=== PATIENT | female | born 1995 | race Two or more races ===

== ENCOUNTER 2023-08-11 10:30 | Emergency (ER) | payer MEDICARE, MEDICAID, SELFPAY ==
[2023-08-11 10:55] VITALS: BP 121/82; PULSE 68; RESP 12; TEMP 36.3; O2SAT 100
--- NOTE | 2023-08-11 11:08 | ED.GENADULT ---
HPI - General Adult General Chief complaint: Unspecified Stated complaint: rings stuck on finger right hand Time Seen by Provider: 08/11/23 11:08 Source: patient Mode of arrival: ambulatory Limitations: no limitations History of Present Illness HPI narrative: 28 yo F presents with two rings stuck on R ring finger. Pt states she always wears her rings and never removes them. Fingers swelled up this week. Her friends dad was able to remove several of the rings for her but could not get the two off her R ring finger. Finger is swollen. NV intact. All systems reviewed and negative except as noted above. Review of Systems Review of Systems: CONSTITUTIONAL: Denies fever, chills, or sweats. EYES: Denies visual changes, redness, or discharge. ENT: Denies rhinorrhea, congestion, sore throat, or otalgia. CARDIOVASCULAR: Denies chest pain, palpitations, or edema. RESPIRATORY: Denies cough or dyspnea. GASTROINTESTINAL: Denies abdominal pain, nausea, vomiting, or diarrhea. GENITOURINARY: Denies dysuria or hematuria. SKIN: Denies rash or itching. Reports two ring stuck on right ring finger. MUSCULOSKELETAL: Denies back pain, joint pain, or myalgia. NEUROLOGIC: Denies headache, numbness, or weakness. PSYCHIATRIC: Denies anxiety or depression. All other systems reviewed are negative, except as documented in HPI. PMFSH Comments At time of signature, agree with nursing past medical, surgical, social and family history. There is no relevant family history pertinent to the presenting complaint. Exam Narrative: GENERAL: This is a well-nourished, well-developed patient, in no apparent distress. HEAD: normocephalic, atraumatic. EYES: PERRL. Sclera clear/white. Vision is grossly intact. EARS: External ears normal NOSE: External nose normal NECK: Neck supple, non-tender without lymphadenopathy, masses or thyromegaly. CARDIOVASCULAR: Regular rate and rhythm without murmurs, gallops, or rubs. RESPIRATORY: Clear to auscultation. Breath sounds equal bilaterally. No wheezes, rales, or rhonchi. SKIN: warm, Dry, intact with no suspicious lesions or rash, good texture and turgor. NEURO: awake, alert, and oriented to person, place and time. There were no obvious focal neurologic abnormalities. EXTREMITIES: two rings to R ring finger. finger is swollen with reddish-purple color. warm to touch. normal cap refill. Course Course Level of Care: Express Care Visit Vital Signs Vital signs: Vital Signs Temperature 36.3 C L 08/11/23 10:55 Pulse Rate 68 08/11/23 10:55 Respiratory Rate 12 08/11/23 10:55 Blood Pressure 121/82 08/11/23 10:55 Pulse Oximetry 100 08/11/23 10:55 Temperature 36.3 C L 08/11/23 10:55 Pulse Rate 68 08/11/23 10:55 Respiratory Rate 12 08/11/23 10:55 Blood Pressure 121/82 08/11/23 10:55 Pulse Oximetry 100 08/11/23 10:55 reviewed Procedures Foreign Body Removal Foreign Body #1: Foreign Body Removal Date: 08/11/23 Foreign Body Removal Time: 11:15 Time Out Performed: no Site: right and upper extremity Description of foreign body: other (metal ring) Sedation/Analgesia: none Complications: none Foreign Body Removal Narrative: two rings removed using ring cutting system and wire cutters Medical Decision Making MDM Narrative Medical decision making narrative: rings removed successfully from right ring finger. Neurovascularly intact. Mild erythema surrounding skin after ring removal well prescribed Bactroban ointment as precaution. Patient is aware of diagnosis, understands and agrees to treatment plan. Anticipatory guidance given. Patient agrees to follow-up as directed and is aware of reasons to seek care at the emergency department. Portions of this record may have been created with voice recognition software Vital Signs Vital Signs: Vital Signs Temperature 36.3 C L 08/11/23 10:55 Pulse Rate 68 08/11/23 10:55
== END 2023-08-11 12:22 | disposition home or self-care (01) ==
PROVIDERS: Emergency Provider Nurse Practitioner Family
DX: S60.444A External constriction of right ring finger, initial encounter (principal); W49.04XA Ring or other jewelry causing external constriction, initial encounter
CPT/HCPCS: 99213; G0463